=== PATIENT | female | born 1990 | race Caucasian/White ===

== ENCOUNTER → 2018-11-05 | Outpatient (CLI) | payer OTHER ==
[~2018-11-05] MED LIST: MAGNESIUM ELEM300 MG PO; PRENATAL PO; PROAIR HFA0.09 MG/AC IH; RT ADVAIR 228 DISKUS IH
== END ==
LOC: LDRO 11:00
DX: Z34.90 Encounter for supervision of normal pregnancy, unspecified, unspecified trimester (principal); Z3A.00 Weeks of gestation of pregnancy not specified

== ENCOUNTER 2018-11-10 16:12 | Outpatient (RCR) | payer OTHER ==
--- NOTE | 2018-11-09 15:50 | NUR ---
Pt here for betamethasone injection. 27.1 weeks gestation and was sent over from the [facility] d/t shortened cervix. Pt to return tomorrow at 1530 for 2nd dose of betamethasone. Pt states baby is active, dneies any vaginal bleeding or leaking of fluid. Assessment complete and NST reactive.
--- NOTE | 2018-11-09 16:20 | NUR ---
Discharge instructions and return precautions given. Ambulatory off of unit.
[~2018-11-10] VITALS: Ht 160 cm; Wt 87.5 kg
--- NOTE | 2018-11-10 20:00 | NUR ---
193- Patient ambulatory to R-5 with . Patient was here at 1600 for Betamethasone shot but medication was unavailable. 1934- EFM and TOCO on and tracing. Dexamethasone 6mg given. See eMAR. 2000- NST reactive. Patient to return 11/11/18 at 0730 for second dose of Dexamethasone. Patient ambulatory off unit with .
--- NOTE | 2018-11-11 07:20 | NUR ---
0720- Pt arrives on unit ambulatory for scheduled Dexamethasone dose. Pt shown to room. 0725- EFM and TOCO on and tracing. Pt denies VB, LOF, or UCs at this time. Denies concerns, +FM. 0749- Dexamethasone IM given per order in Right buttock. Pt tolerated well. 0755- EFM and TOCO off. Questions encouraged, Pt denies at this time. Encouraged to keep next scheduled appointment with Dr Oshea and continue bedrest as ordered. Pt verbalizes understanding.
[2018-12-26] MEDS ORDERED: TYLENOL 325MG325 MG PO (13:21)
== END 2019-02-07 | disposition home or self-care (01) ==
LOC: LDRO
DX: O26.872 Cervical shortening, second trimester (principal); Z3A.27 27 weeks gestation of pregnancy
CPT/HCPCS: J0702; J1100

== ENCOUNTER 2018-12-03 19:16 | Outpatient (CLI) | payer OTHER ==
[~2018-12-03] VITALS: Ht 162.6 cm; Wt 89.1 kg
--- NOTE | 2018-12-03 19:30 | NUR ---
1929- PT PRESENTS TO LDR COMPLAINING OF CONTRACTIONS/CRAMPING. AMBULATORY TO ROOM LR6, CHANGED INTO GOWN. 1941- EFM X2 APPLIED. PT STATES SHE FELT SOME VAGINAL DRAINAGE WHILE WALKING TO UNIT, HAS HAD SOME CRAMPING AND PELVIC PRESSURE FOR ABOUT 3 HOURS, DENIES ANY VAGINAL BLEEDING, AND IS FEELING THE BABY MOVE. PLAN OF CARE DISCUSSED. 1954- AMNITRACE NEGATIVE, NO POOLING OF FLUID, SVE BY THIS NURSE 050/-3. DISCUSSS WITH PT AND ANSWERED QUESTIONS. 1999- NURSING ADMISSION HISTORY AND ASSESSMENT COMPLETE. 2019- PT UP TO BATHROOM AND ATTEMPTS TO VOID, UNABLE TO PROVIDE ENOUGH URINE AT THIS TIME. 2054- DR BELTRAN CALLS AND IS UPDATED ON PT HISTORY, COMPLAINT, SVE, AMNITRACE, AND STRIP. ORDERS TO GO AHEAD WITH UA AND MAY DISMISS HOME IF UA IS NORMAL AND CERVIX IS UNCHANGED. PT UP TO BATHROOM AND PROVIDES URINE SAMPLE. 2109- PT UPDATED ON PLAN OF CARE AND ORDERS FROM DR BELTRAN, QUESTIONS ANSWERED.
[2018-12-03 20:15] VITALS: BP 121/76; PULSE 93; TEMP 97.6
[2018-12-03 21:25] LABS: COLLECTION METHOD CLEAN CATCH
[2018-12-03 21:34] LABS: MUCOUS Present /lpf; PH 6 (5-8); SQUAMOUS EPITHELIAL 0-2 /hpf; URINE APPEARANCE Clear; URINE BACTERIA None Seen /hpf; URINE BILIRUBIN Negative (NEGATIVE); URINE BLOOD Negative (NEGATIVE); URINE COLOR Yellow; URINE GLUCOSE Negative (NEGATIVE); URINE KETONE Trace (NEGATIVE); URINE LEUKOCYTE ESTERASE Negative (NEGATIVE); URINE NITRATE Negative (NEGATIVE); URINE PROTEIN(semi-quant) Negative (NEGATIVE); URINE RBC 0-2 /hpf; URINE UROBILINOGEN Negative (NEGATIVE); URINE WBC 0-2 /hpf
--- NOTE | 2018-12-03 21:45 | NUR ---
2144- US RESULTED. NURSE TO BEDSIDE TO DISCUSS RESULTS. PLAN OF CARE DISCUSSED. 2149- PT UP TO VOID. SVE BY THIS NURSE UNCHANGED. PT CHANGED INTO CLOTHES FOR DISMISSAL. 2208- DISMISSAL INSTRUCTIONS GIVEN AND PT VERBALIZES UNDERSTANDING. PT DISMISSED TO HOME AMBULATORY ACCOMPANIED BY .
== END 2018-12-03 22:09 | disposition home or self-care (01) ==
LOC: LDRO 19:16
PROVIDERS: Obstetrics & Gynecology
DX: O62.9 Abnormality of forces of labor, unspecified (principal); O26.893 Other specified pregnancy related conditions, third trimester; R10.2 Pelvic and perineal pain; Z3A.30 30 weeks gestation of pregnancy

== ENCOUNTER 2018-12-20 06:26 | Outpatient (CLI) | payer OTHER ==
[~2018-12-20] VITALS: Ht 162.6 cm; Wt 88.6 kg
--- NOTE | 2018-12-20 06:35 | NUR ---
Pt arrives on unit via wheelchair with spouse for possible SROM. G1L0 at 33.0 weeks gestation. Pt states "large gush of fluid on bed that did not smell like urine." Changed into a clean gown. EFM and toco applied. VSS. Denies vaginal bleeding and regular ctx. Reports GFM. Amniotest negative. SVE per this RN /-2. No fluid noted on glove. Amniotest performed on glove. Resulted negative. Admission assessment completed. Pt updated on POC. Call light within reach. Bed locked in low position. 0700-Dr. Oshea notified. See phyisician notification. 0715-Reactive FHR strip obtained. Pt taken off monitors. Discharge instructions given. No questions or concerns at this time. Leaves unit ambulatory with spouse.
[2018-12-20 07:03] VITALS: TEMP 97.9
== END 2018-12-20 07:15 | disposition home or self-care (01) ==
LOC: LDRO 06:26 → LDR 06:35 → LDRO 07:15
DX: Z34.93 Encounter for supervision of normal pregnancy, unspecified, third trimester (principal); Z3A.33 33 weeks gestation of pregnancy
CPT/HCPCS: OP

== ENCOUNTER 2018-12-22 23:52 | Outpatient (CLI) | payer OTHER ==
[~2018-12-22] VITALS: Ht 162.6 cm; Wt 88.6 kg
--- NOTE | 2018-12-23 | NUR ---
2355- Patient ambulatory from ED with ,Luis Manuel. Patient oriented to room. Patient into restroom to change into gown. 0000- Patient back to bed. EFM and TOCO on and tracing. Patient here with complaints of contractions every 4.5 minutes since 2129. Patient admits to light brown mucous-like discharge. Patient says discharge has been water-like all day and increasing. Amniosure negative. Patient was seen on L&D 2 days ago for possible SROM. Patient denies LOF, bleeding, or spotting. Patient also has complaints of increased lower back pain. Patient appears comfortable, without pain at this time. Assessment completed. VSS. 0015- OBIEE /-2. 0020- updated. Monitor x1 hour, if NO change, ok to discharge.
[2018-12-23 00:30] VITALS: BP 122/67; PULSE 93; TEMP 98.3
[2018-12-23 01:00] VITALS: BP 124/70; PULSE 100; TEMP 98.1
--- NOTE | 2018-12-23 01:00 | NUR ---
0040- Prolonged accel noted leading to tachycardia. Moderate variability noted. Patient states "baby is wild in there tonight". 0100- SVE /-2 and unchanged. Discharge instructions discussed with patient. Encouraged patient to update [facility] tomorrow about visit to L&D. VSS. 0110- Patient ambulatory off unit with .
== END 2018-12-23 01:10 | disposition home or self-care (01) ==
LOC: LDRO 23:52
DX: O62.9 Abnormality of forces of labor, unspecified (principal); Z3A.33 33 weeks gestation of pregnancy

== ENCOUNTER 2018-12-26 12:51 | Outpatient (CLI) | payer OTHER ==
[2018-12-26] VITALS (8 sets, daily range): BP systolic 120–130; BP diastolic 66–86; PULSE 90–130; TEMP 98.1–98.2
[~2018-12-26] VITALS: Ht 160 cm; Wt 90.5 kg
--- NOTE | 2018-12-26 13:00 | NUR ---
1300- Patient arrives ambulatory with spouse with complaints of ROM at 1000 this morning. Patient denies contractions or vaginal bleeding. Reports normal movement. Patient changes into gown, gushes of clear fluid noted upon ambulation to bed. VS obtained. 1305- Amniotrace positive, SVE 1/50/-3 with moderate amount of clear fluid noted upon exam. Patient repositioned WL and updated on plan of care. Dr. Oshea currently on unit, will notify of patient arrival as soon as available. Assessment completed. 1335- Dr. Oshea notified of patient arrival and PROM at 1000. Reviewed patient history, SVE, FHR strip and contraction pattern. Patient denies painful contractions at this time. Orders for IV starts, labs, Amp 2G, Magnesium Sulfate infusion. 1345- IV started in [facility], Magnesium Sulfate 4G bolus infusing after 2 RN check per order at 1355. Second IV site started in , Ampicillin 2 G infusing per order at 1359. 1403- Spence catheter placed by Ton Friedman RN. Patient tolerates well. Labs sent per orders. Dr. Oshea remains on unit, reviews FHR strip and contraction pattern. Patient reports occasional mild contractions. Orders to not recheck patient at this time. 1429- Betamethasone given IM per order. Patient prepped for transfer.
[2018-12-26] MEDS ORDERED: TYLENOL 325MG325 MG PO (13:21)
[2018-12-26 14:19] LABS: COLLECTION METHOD CATHETER
[2018-12-26 14:22] LABS: BASO % 0.4 % (0.0-2.0); EOS # 0.4 (0.0-0.7); EOS % 3.2 % (0-4.0); GRAN # 8.1 (1.4-6.5); GRAN % 73.6 % (42.2-75.2); HEMOGLOBIN 11.2 g/dl (12.5-16.0); LYMPH # 1.5 (1.2-3.4); LYMPH % 13.5 % (20.0-51.0); MEAN CORPUSCULAR HEMOGLOBIN 32 pg (27.0-31.0); MEAN CORPUSCULAR HGB CONC 33 g/dl (33.0-37.0); MONO % 8.8 % (1.7-9.3); PLATELET COUNT 246 K/mm3 (130-400); RED BLOOD COUNT 3.56 M/mm3 (4.10-5.30); REDCELL DISTRIBUTION WIDTH-CV 14.2 % (11.5-14.5)
[2018-12-26 14:23] LABS: HEMATOCRIT 33.8 % (37.0-47.0)
[2018-12-26 14:24] LABS: MEAN CELL VOLUME 9 fl (80.0-100.0)
[2018-12-26 14:28] LABS: PH 7 (5-8); SQUAMOUS EPITHELIAL None Seen /hpf; URINE APPEARANCE Clear; URINE BACTERIA None Seen /hpf; URINE BILIRUBIN Negative (NEGATIVE); URINE BLOOD 3+ (NEGATIVE); URINE COLOR Straw; URINE GLUCOSE Negative (NEGATIVE); URINE KETONE Negative (NEGATIVE); URINE LEUKOCYTE ESTERASE Negative (NEGATIVE); URINE NITRATE Negative (NEGATIVE); URINE PROTEIN(semi-quant) Negative (NEGATIVE); URINE UROBILINOGEN Negative (NEGATIVE); URINE WBC 0-2 /hpf
--- NOTE | 2018-12-26 14:53 | NUR ---
Patient resting in bed. Physician on unit, reviews strip. Ambulance in transit.
--- NOTE | 2018-12-26 14:55 | NUR ---
[facility] here for transfer. Taken off [facility], report to EMS>
--- NOTE | 2018-12-26 15:28 | NUR ---
[facility] to YAN[facility].
== END 2018-12-26 14:55 | disposition short-term general hospital (02) ==
LOC: LDRO 12:51
PROVIDERS: Obstetrics & Gynecology
DX: O42.913 Preterm premature rupture of membranes, unspecified as to length of time between rupture and onset of labor, third trimester (principal); Z3A.33 33 weeks gestation of pregnancy
CPT/HCPCS: J0290; J0702; J3475; J7120